=== PATIENT | male | born 1965 | race Hispanic/Latino ===

== ENCOUNTER 2019-12-28 10:48 | Day surgery (SDC) | payer BC ==
[2019-12-26 10:59] LABS: PLATELET COUNT 321 K/uL (142-355)
[2019-12-26 11:11] LABS: POTASSIUM 4.2 mmol/L (3.6-5.2)
[~2019-12-28] VITALS: Ht 30.5 cm; Wt 0.5 kg
== END 2019-12-28 13:29 | disposition home or self-care (01) ==
LOC: OR 10:48
PROVIDERS: Internal Medicine Gastroenterology
PROC: 0DBP8ZZ Excision of Rectum, Via Natural or Artificial Opening Endoscopic (ICD-10-PCS; principal; 2019-12-28)
DX: K62.1 Rectal polyp (principal); K57.30 Diverticulosis of large intestine without perforation or abscess without bleeding; K64.8 Other hemorrhoids; Z12.11 Encounter for screening for malignant neoplasm of colon
CPT/HCPCS: 80053; 85027; J2704

== ENCOUNTER 2022-02-04 12:02 | Outpatient (CLI) | payer BC | END 2022-02-04 20:01 | disposition home or self-care (01) | LOC: RAD 12:02 | PROVIDERS: ATTEND Internal Medicine | DX: M54.2 Cervicalgia (principal); M25.511 Pain in right shoulder ==

== ENCOUNTER 2022-06-09 09:12 | Outpatient (CLI) | payer BC | END 2022-06-09 21:26 | disposition home or self-care (01) | LOC: RESP 09:12 | PROVIDERS: ATTEND Nurse Practitioner Family | DX: R00.8 Other abnormalities of heart beat (principal) | CPT/HCPCS: 93005; 93225 ==

== ENCOUNTER → 2022-06-23 | Outpatient (CLI) | payer BC | LOC: RESP 06-11 09:00 | PROVIDERS: ATTEND Nurse Practitioner Family | DX: R00.8 Other abnormalities of heart beat (principal) ==